=== PATIENT | female | born 1945 | race American Indian/Alaskan Native ===

== ENCOUNTER 2017-01-15 06:40 | Outpatient (CLI) | payer MEDICARE ==
[2017-01-15] MEDS ORDERED: DULCOLAX PR ONE (08:26)
[2017-01-15] MEDS ORDERED: DULCOLAX PR PRN (10:00)
--- NOTE | 2017-01-15 10:15 | Fluoroscopy Report ---
DEFAGRAM History: Chronic constipation Findings: Nurse Head film of the abdomen is unremarkable. Lateral views of the rectum demonstrate no evidence for mass or ulceration. The anorectal angle was normal. 65 fluoroscopic images were captured during defecation. The images demonstrate a large rectocele which does not completely empty. There was no evidence for prolapse or enterocele. Impression: Large rectocele which does not completely empty.
== END 2017-01-15 06:41 | disposition home or self-care (01) ==
LOC: FLUORO 06:40
PROVIDERS: ATTEND Internal Medicine Gastroenterology
DX: K59.04 Chronic idiopathic constipation (principal); N81.6 Rectocele
CPT/HCPCS: 74270; Q9963

== ENCOUNTER 2017-01-29 08:15 | Outpatient (CLI) | payer MEDICARE ==
--- NOTE | 2017-01-29 09:15 | XRay Report ---
ABDOMEN RADIOGRAPHS INDICATION: Sitz marker study. Chronic idiopathic constipation. COMPARISON: None similar. FINDINGS: Frontal abdominal radiographs, 2 images demonstrate approximately 5 sitz markers along the distal ascending colon/hepatic flexure/proximal transverse colon region. Nonobstructive bowel gas pattern. Numerous pelvic phleboliths and some residual contrast within rectosigmoid diverticuli noted. A contrast-containing proximal descending colon diverticulum as well. Right upper quadrant/subdiaphragmatic postsurgical changes. Clear visualized lung bases. Multilevel spinal degenerative changes, including lower thoracic spurring and lower lumbar facet arthropathy. Osteopenia and moderate, right more than left, hip degenerative changes also noted. CONCLUSION: 1. Nonobstructive bowel gas pattern without significant colonic stool burden, as described. Few sitz markers noted, as above. 2. Other findings, including diverticulosis, postsurgical changes and bony degenerative changes. Thank you for the opportunity to participate in this patient's care.
== END 2017-01-29 08:16 | disposition home or self-care (01) ==
LOC: XRAY 08:15
PROVIDERS: ATTEND Internal Medicine Gastroenterology
DX: K59.04 Chronic idiopathic constipation (principal); K57.30 Diverticulosis of large intestine without perforation or abscess without bleeding; I87.8 Other specified disorders of veins; M85.88 Other specified disorders of bone density and structure, other site; M16.0 Bilateral primary osteoarthritis of hip; M47.894 Other spondylosis, thoracic region; M47.896 Other spondylosis, lumbar region
CPT/HCPCS: 74000